=== PATIENT | female | born 1935 | race Caucasian/White ===

== ENCOUNTER → 2018-06-26 | Outpatient (CLI) | payer MEDICARE, BC ==
[~2018-06-26] MED LIST: AMBIEN 5 MG TABL5 M1 PO; BENTYL 20 MG TA20 M1 PO; CALCIUM 600 +1 EA11 PO; COSOPT EYE DROPS5 ML OTIC; DETROL LA4 MG PO; GAVISCON LIQUI355 ML PO; IMURAN 50MG TAB50 M1 PO; LATANOPROST 0.005% OPHTHALMIC; LOW DOSE ASPIRI81 M1 PO; MIACALCIN200 UNIT/1 INH; MULTIVITAMINS1 EAC7 PO; NAPROXEN375 MG PO; OXYBUTYNIN CHLO15 MG PO; PENTASA500 MG PO; PREDNISONE 5 MG5 M1 PO; SERTRALINE HCL100 MG PO; SYSTANE GEL EYE10 ML OPHTHALMIC; VITAMINC500 PO; ZEGERID 20 MG1 EACH PO; ZEGERID 40 MG1 EACH PO; ZOFRAN ODT4 MG PO
== END ==
LOC: M.CT 11:08
DX: J98.4 Other disorders of lung (principal); I25.10 Atherosclerotic heart disease of native coronary artery without angina pectoris; M81.0 Age-related osteoporosis without current pathological fracture; Z88.8 Allergy status to other drugs, medicaments and biological substances; Z86.73 Personal history of transient ischemic attack (TIA), and cerebral infarction without residual deficits; Z80.3 Family history of malignant neoplasm of breast; Z95.0 Presence of cardiac pacemaker

== ENCOUNTER 2020-08-07 11:05 | Inpatient (IN) | payer MEDICARE, BC ==
[~2020-08-07] VITALS: Ht 170.2 cm; Wt 48.9 kg
[~2020-08-07 11:05] MED LIST changes: +LANTANOPROST OPHTHALMIC; -LATANOPROST 0.005% OPHTHALMIC
[2020-08-07 11:18] VITALS: BP 152/64
[2020-08-07] MEDS ORDERED: LATANOPROST 0.7.5 ML RT. EYE (12:02)
[2020-08-07] MEDS ORDERED: COMPAZINE10 MG PO (12:04)
[2020-08-07] MEDS ORDERED: IRON18 M1 PO (12:05)
[2020-08-07] MEDS ORDERED: ALPHAGAN P5 ML OPHTHALMIC (12:05)
[2020-08-07] MEDS ORDERED: ELIQUIS2.5 MG PO (12:05)
[2020-08-07] MEDS ORDERED: PLAVIX 75 MG TA75 MG PO (12:05)
[2020-08-07 12:06] LABS: ABSOLUTE LYMPHOCYTES 0.7 thou/uL (0.8-5.3); ABSOLUTE MONOCYTES 0.9 thou/uL (0.0-1.2); ABSOLUTE NEUTROPHILS 10.1 thou/uL (1.6-8.1); BASOPHILS 0.3 %; EOSINOPHILS 0.4 %; HEMATOCRIT 31.6 % (37.0-47.0); HEMOGLOBIN 10.6 gm/dL (12.0-15.0); MCH 30.3 pg (26.0-34.0); MCHC 33.5 g/dL (28.0-37.0); MCV 90.4 fL (80.0-100.0); MONOCYTES 7.9 %; MPV 8.4 fl. (7.2-11.1); NUCLEATED RBCS 0 /100WBC; PLATELET COUNT* 171 thou/uL (150-400); POLYS 85.4 %; RBC 3.49 mil/uL (4.20-5.00); WBC 11.8 thou/uL (4.0-11.0)
[2020-08-07] MEDS ORDERED: BACITRACIN-POL3.5 GM OPHTHALMIC (12:06)
[2020-08-07] MEDS ORDERED: PRESERVISION A1 EAC2 PO (12:06)
[2020-08-07 12:18] LABS: CALCIUM 8.8 mg/dL (8.5-10.1); POTASSIUM 3.8 mmol/L (3.5-5.1)
[2020-08-07 12:22] LABS: ALBUMIN 2.7 g/dL (3.4-5.0); TOTAL BILIRUBIN 0.5 mg/dL (<0.1-1.0); TOTAL PROTEIN 7.2 g/dL (6.4-8.2)
[2020-08-07 12:38] LABS: URINE BILIRUBIN NEGATIVE (Negative); URINE BLOOD NEGATIVE (Negative); URINE CLARITY CLEAR; URINE COLOR YELLOW; URINE GLUCOSE-RANDOM NEGATIVE (Negative); URINE KETONES TRACE (Negative); URINE LEUKOCYTES NEGATIVE (Negative); URINE NITRITE NEGATIVE (Negative); URINE PROTEIN TRACE (Negative); URINE SPECIFIC GRAVITY 1.025 (1.005-1.030); URINE UROBILINOGEN 0.2 E.U./dl (0.2-1.0)
--- NOTE | 2020-08-07 14:32 | EKG ---
[place] [address] ELECTROCARDIOGRAM REPORT Name: RAFAEL VELASQUEZ Room: [place] [address] ADM IN [facility].#: [id number] Admission: 08/07/20 Attend Phys: Mary Mayen, Discharge: Date of : 39 Date of Service: 08/07/20 1204 Report #: [id number] THIS REPORT FOR: //name// [facility] ED Test Date: 2020-08-07 Test Time: 12:04:16 Pat Name: RAFAEL VELASQUEZ Department: Room: [facility] Gender: F [employer] Resurfacer: CHELI : 1935 Requested By: Clint Valerio Order Number: [id number] MD: Freedom Moon Measurements Intervals [place] Rate: 78 P: 77 MI: 146 QRS: -35 QRSD: 142 T: -68 QT: 497 QTc: 567 Interpretive Statements Sinus rhythm Probable left atrial enlargement Left ventricular hypertrophy Prolonged QT interval Compared to ECG 05/28/2018 11:58:29 Left ventricular hypertrophy now present Prolonged QT interval now present Electronically Signed On 08-07-2020 14:31:54 CDT by Freedom Moon [email or web address] <ELECTRONICALLY SIGNED> By: Freedom Moon MD, [facility] 08/07/20 1431 1204 1204 Freedom Moon MD, [facility] /EPI
[2020-08-07 15:35] VITALS: BP 118/58
[2020-08-07 16:00] VITALS: BP 140/62
[2020-08-07] MEDS ORDERED: LIALDA1.2 GM PO (16:36)
[2020-08-07 20:20] VITALS: BP 106/55; BP 135/55
[2020-08-07 23:00] VITALS: BP 113/60
[2020-08-07 23:30] VITALS: BP 113/60
[2020-08-08 04:00] VITALS: BP 111/42
[2020-08-08 07:45] VITALS: BP 100/56
[2020-08-08 11:56] VITALS: BP 111/51
[2020-08-08 16:42] VITALS: BP 108/54
[2020-08-09 00:23] VITALS: BP 101/45
[2020-08-09 04:05] VITALS: BP 119/51
[2020-08-09 06:40] LABS: MCH 31.4 pg (26.0-34.0); MCHC 34.6 g/dL (28.0-37.0); MCV 90.8 fL (80.0-100.0); MPV 8.6 fl. (7.2-11.1); RBC 2.86 mil/uL (4.20-5.00); RDW-CV 14.8 % (10.5-14.5); WBC 7.8 thou/uL (4.0-11.0)
[2020-08-09 06:56] LABS: CREATININE 0.9 mg/dL (0.6-1.3); POTASSIUM 3.5 mmol/L (3.5-5.1)
[2020-08-09 11:10] VITALS: BP 126/59
[2020-08-09 15:37] VITALS: BP 129/55
[2020-08-10 04:41] VITALS: BP 120/55
[2020-08-10 08:00] VITALS: BP 146/58
[2020-08-10] MEDS ORDERED: LEVOFLOXACIN500 MG PO (09:48)
[2020-08-10 11:53] VITALS: BP 146/58
--- NOTE | 2020-08-11 15:30 | CON ---
[address] [address] CONSULTATION Name: RAFAEL VELASQUEZ Room: [address] IN M.R.#: [id number] Admission: 08/07/20 Attend Phys: Mary Mayen MD Discharge: 08/10/20 Date of : 39 Report #: [id number] THIS REPORT FOR: cc: Nika Wesley Linda J. DO Namin, Farid M. MD ~ DOC #: [id number] Balbir Krishnan MD DATE OF CONSULTATION: 08/08/2020 REFERRING PHYSICIAN: Dr. Mary Mayen. REASON FOR CONSULTATION: History of colitis, dysphagia, and weight loss. HISTORY OF PRESENT ILLNESS: This is an 84-year-old female with history of Crohn's disease status post colostomy who follows Dr. Nelson as outpatient. The patient reports that last time that she saw Dr. Nelson was 2 months ago. She has not had any endoscopic evaluation for at least several years as reported per her and her . Her reports that she has lost a lot of weight and has been weak. She was brought to the hospital mainly because she was found down at home by her daughter. The patient is hard of hearing and appears very weak. She is able to communicate and tells her mere concerns in reference to her weight loss and difficulty swallowing. She denies any significant problem with her stool output. She denies any blood in her ostomy bag. PAST MEDICAL HISTORY: Significant for: 1. History of Crohn's disease status post colostomy. 2. CVA. 3. Gastroesophageal reflux disease. 4. Recent weight loss. 5. Dysphagia. 6. History of pacemaker placement. 7. Osteoporosis. 8. Arthritis. 9. History of femur fracture. 10. Insomnia. 11. Depression. ALLERGIES: Significant to MEPERIDINE. MEDICATIONS: [place] [address] CONSULTATION Name: RAFAEL VELASQUEZ Room: [address]#: [id number] Admission: 08/07/20 Attend Phys: Mary Mayen MD Discharge: 08/10/20 Date of : 39 Report #: [id number] SOCIAL HISTORY: The patient lives at home. Denies tobacco or alcohol use. She has lost quite a bit of weight in the last several months as she is unable to eat and reports that she coughs and chokes on eating. FAMILY HISTORY: Noncontributory. PHYSICAL EXAMINATION: VITAL SIGNS: Reveals blood pressure of 100/56, respirations 18, pulse 67, temperature 98.3. LUNGS: Decreased breath sounds at bases. CARDIOVASCULAR: Regular. ABDOMEN: Soft, nontender, nondistended. Ostomy bag is in place with stool in it. NEUROLOGIC: The patient is hard of hearing, but alert, oriented and able to answer questions. LABORATORY DATA: Labs reveal sodium of 139, potassium 3.8, BUN is 21, creatinine 1.0. Liver function tests are all within normal limits. Albumin is 2.7. WBC is 11.8 with hemoglobin of 10.6 and platelets of 171. IMAGING DATA: CT of abdomen and pelvis was obtained on admission. This was significant for evidence of bilateral basilar pulmonary infiltrates and minor decreased density in the right kidney. There is also mild stranding around the sigmoid colon, which may signify colitis versus diverticulitis. Finally, there is also a small left renal calculus noted. ASSESSMENT AND PLAN: The patient with history of Crohn's disease status post colostomy who follows Dr. Nelson as outpatient and she believes that she has seen him in the office 2 months ago. She has had significant weight loss in the past several months as she is unable to eat with dysphagia and choking. She denies any significant problem with her lower GI. She denies change in stool volume or blood in the stool. CT is suggestive of some mild stranding. She currently has pneumonia, for which she is being treated. I will recommend swallow study, and once she is better in reference to her pneumonia, we will consider EGD and lower scope through the colostomy. The patient and family agreeable with plan. Meanwhile, we will get all the records from Dr. Nelson's office. Balbir Krishnan MD [facility] [address] CONSULTATION Name: RAFAEL VELASQUEZ Room: [address] IN .R.#: [id number] Admission: 08/07/20 Attend Phys: Mary Mayen MD Discharge: 08/10/20 Date of : 39 Report #: [id number] <ELECTRONICALLY SIGNED> By: Balbir Krishnan MD 08/11/20 1530 0942 1237Balbir Krishnan MD /nt
== END 2020-08-10 15:35 | disposition home health service (06) | DRG 177 ==
LOC: M.ERS 11:05 → M.2W 13:38 → M.TBA-ER 13:38 → M.2W 15:51
PROVIDERS: Emergency Medicine; Internal Medicine; ADMIT Internal Medicine; ATTEND Internal Medicine
DX: J15.6 Pneumonia due to other Gram-negative bacteria (principal); J96.01 Acute respiratory failure with hypoxia; K50.90 Crohn's disease, unspecified, without complications; F32.9 Major depressive disorder, single episode, unspecified; M19.90 Unspecified osteoarthritis, unspecified site; G47.00 Insomnia, unspecified; K52.9 Noninfective gastroenteritis and colitis, unspecified; M81.0 Age-related osteoporosis without current pathological fracture; Z20.822 Contact with and (suspected) exposure to COVID-19; Z93.3 Colostomy status; Z95.0 Presence of cardiac pacemaker; Z88.5 Allergy status to narcotic agent; Z79.01 Long term (current) use of anticoagulants; Z79.899 Other long term (current) drug therapy; Z86.73 Personal history of transient ischemic attack (TIA), and cerebral infarction without residual deficits